=== PATIENT | female | born 2000 | race Caucasian/White ===

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

== ENCOUNTER 2019-05-31 14:05 | Emergency (ER) | payer OTHER ==
--- NOTE | 2019-05-31 14:49 | ED ---
GI/ HPI - HPI Summary HPI Summary: Patient complains of progressive rectal bleeding and rectal pain with bowel movement 2 months. Now noticing bright red blood mixed with stool. States history of painless mild rectal spotting when wiping after bowel movement 1 year. Also states occasional sharp pain near her rectum over the past year. Denies prior history of hemorrhoids. Denies fever, cough, sore throat, CP, SOB , N/V/D, abdominal pain, change in urine. Medical history is acne, currently taking Accutane. Abdominal surgical history is none. - History of Current Complaint Chief Complaint: EDGeneral Time Seen by Provider: 05/31/19 14:42 Stated Complaint: BLOOD IN STOOL PER PT Hx Obtained From: Patient Hx Last Menstrual Period: 11/23 Onset/Duration: Started Weeks Ago Timing: Intermittent Severity: Moderate Current Severity: Moderate Vaginal Bleeding Description: Bright Red Pain Intensity: 8 Location of Pain: Rectal Pain Characteristics: Sharp Associated Signs and Symptoms: Positive: Rectal Pain, Blood-Streaked Stool, Bright Red Blood w/Stool - Allergy/Home Medications Allergies/Adverse Reactions: Allergies Allergy/AdvReac Type Severity Reaction Status Date / Time No Known Allergies Allergy Verified 05/31/19 14:53 Home Medications: Home Medications ISOtretinoin [Isotretinoin] 2 cap PO DAILY 05/31/19 [History Confirmed 05/31/19] PMH/Surg Hx/FS Hx/Imm Hx Endocrine/Hematology History: Denies: Hx Anticoagulant Therapy Cardiovascular History: Denies: Hx Pacemaker/ICD History: Denies: Hx Dialysis Sensory History: Denies: Hx Eye Prosthesis Opthamlomology History: Denies: Hx Legally Blind EENT History: Denies: Hx Deafness Neurological History: Denies: Hx Dementia - Surgical History Surgery Procedure, Year, and Place: t&a Infectious Disease History: No Infectious Disease History: Denies: Traveled Outside the [place] in Last 30 Days - Family History Known Family History: Positive: Non-Contributory - Social History Alcohol Use: None Substance Use Type: Reports: None Smoking Status (MU): Never Smoked Tobacco Review of Systems Constitutional: Negative Eyes: Negative ENT: Negative Cardiovascular: Negative Respiratory: Negative Positive: Other Genitourinary: Negative Musculoskeletal: Negative Skin: Negative Neurological: Negative Psychological: Normal All Other Systems Reviewed And Are Negative: Yes Physical Exam - Summary Physical Exam Summary: External rectum normal, no fissures, external hemorrhoids noticed. Significant pain with rectal exam, patient had syncopal episode for about 5 seconds. No internal abnormalities noted on exam. No mckay blood noted. Triage Information Reviewed: Yes Vital Signs On Initial Exam: Initial Vitals Temp Pulse Resp BP Pulse Ox 98.4 F 66 16 114/75 99 05/31/19 14:26 05/31/19 14:26 05/31/19 14:26 05/31/19 14:26 05/31/19 14:26 Vital Signs Reviewed: Yes Appearance: Positive: Well-Appearing Skin: Positive: Warm Head/Face: Positive: Normal Head/Face Inspection Eyes: Positive: Normal Neck: Positive: Supple Respiratory/Lung Sounds: Positive: Clear to Auscultation Cardiovascular: Positive: Normal Abdomen Description: Positive: Nontender Musculoskeletal: Positive: Normal Neurological: Positive: Normal Psychiatric: Positive: Normal AVPU Assessment: Alert - Gopi Coma Scale Best Eye Response: 4 - Spontaneous Best Motor Response: 6 - Obeys Commands Best Verbal Response: 5 - Oriented Coma Scale Total: 15 Procedures - Sedation Patient Received Moderate/Deep Sedation with Procedure: No Diagnostics - Vital Signs Vital Signs Temp Pulse Resp BP Pulse Ox 05/31/19 14:26 98.4 F 66 16 114/75 99 - Laboratory Result Diagrams: 05/31/19 16:56 05/31/19 16:56 Lab Statement: Any lab studies that have been ordered have been reviewed, and results considered in the medical decision making process. GIGU Course/Dx - Course Course Of Treatment: Patient complains of progressive rectal bleeding and rectal pain with bowel movement 2 months. Now noticing bright red blood mixed with stool. States history of painless mild rectal spotting when wiping after bowel movement 1 year. Also states occasional sharp pain near her rectum over the past year. Denies prior history of hemorrhoids. Denies fever, cough, sore throat, CP, SOB, N/V/D, abdominal pain, change in urine. Medical history is acne, currently taking Accutane. Abdominal surgical history is none. Vital signs within normal limits. Labs unremarkable. Stool guaiac positive. Rx for hydrocortisone suppositories. Follow-up with her. - Diagnoses Provider Diagnoses: Rectal bleeding Discharge ED - Sign-Out/Discharge Documenting (check all that apply): Patient Departure - Discharge Plan Condition: Stable Disposition: AGAINST MEDICAL ADVICE Prescriptions: Hydrocortisone SUPP* [Anusol Hc Supp*] 25 mg .SEE ORDER BID 7 Days #14 supp Patient Education Materials: Rectal Bleeding (ED) Referrals: No Primary Care Phys,NOPCP [Medical Doctor] - Felipe Galo MD [Medical Doctor] - Additional Instructions: Follow-up with GI Dr. Galo for further evaluation of rectal pain and bleeding. - Billing Disposition and Condition Condition: STABLE Disposition: Against Medical Advice - Attestation Statements Provider Attestation: I was available for consult. This patient was seen by the GISEL. The patient was not presented to, seen by, or examined by me. Castillo Whitlock MD
[2019-05-31] MEDS ORDERED: NS 0.9% 1000 ML** 1,000 ML IV ONE (16:44)
[2019-05-31] MEDS ORDERED: Ondansetron INJ* 2 MG/ML VIAL IV ONE (17:04)
[2019-05-31 17:23] LABS: ABS Eosinophils 0.1 10^3/ul (0-0.6); ABS Lymphocytes 1.9 10^3/ul (1.0-4.8); ABS Monocytes 0.5 10^3/ul (0-0.8); ABS Neutrophils 3.4 10^3/ul (1.5-7.7); Eosinophil % 0.9 %; Hematocrit 40 % (35-47); Hemoglobin 13.9 g/dL (12.0-16.0); Lymphocyte % 32.5 %; Mean Corpuscular HGB Conc 35 g/dL (31-36); Mean Corpuscular Hemoglobin 31 pg (27-31); Mean Corpuscular Volume 88 fL (80-97); Mean Platelet Volume 8.7 fL (7.4-10.4); Nucleated Red Blood Cells % 0.1; Platelet Count 256 10^3/uL (150-450); Red Blood Count 4.48 10^6 /uL (3.70-4.87); Red Cell Distribution Width 14 % (10-15); White Blood Count 5.9 10^3/uL (3.5-10.8)
[2019-05-31 17:42] LABS: Albumin 4.6 g/dL (3.2-5.2); Albumin/Globulin Ratio 1.5 (1-3); BUN/Creatinine Ratio 14.3 (8-20); C Reactive Protein 1.33 mg/L (<8.01); Calcium 9.5 mg/dL (8.6-10.3); EGFR African American 129.1 (>60); EGFR Non-African American 106.7 (>60); Potassium 3.4 mmol/L (3.5-5.0); Total Bilirubin 0.4 mg/dL (0.2-1.0); Total Protein 7.6 g/dL (6.4-8.9)
[2019-05-31 17:46] LABS: HCG Pregnancy 0.68 mIU/mL
[2019-05-31] MEDS ORDERED: Potassium Chlor TAB* 20 MEQ TAB.ER PO ONE (17:49)
[2019-05-31] MEDS ORDERED: Hydrocortisone SUPP* 25 MG SUPP (2.5%) PR ONE (17:49)
[2019-05-31 18:41] VITALS: BP 115/72
== END 2019-05-31 18:37 | disposition left against medical advice (07) ==
LOC: ED 14:05
DX: K62.5 Hemorrhage of anus and rectum (principal); Z79.899 Other long term (current) drug therapy
CPT/HCPCS: 36415; 80053; 82270; 84702; 85025; 86140; 96361; 96374; 99283; A9270-GY; J2405